=== PATIENT | female | born 1955 | race Caucasian/White ===

== ENCOUNTER 2024-09-09 23:48 | Inpatient (IN) | payer MEDICARE, SELFPAY ==
[2024-09-09] VITALS (7 sets, daily range): BP systolic 87–121; BP diastolic 62–106
--- NOTE | 2024-09-09 22:13 | ED.GENMED ---
History of Present Illness
General
Chief Complaint: Change in Mental Status
Source: ambulance crew (Nursing staff)
Exam Limitations: dementia
Time Seen by Provider: 09/09/24 22:02
History of Present Illness
History of Present Illness:
This is a 69 year old female that is non verbal from [facility]. Told that the patient has decreased mentation and failure to thrive per staff. Told that she was hypotensive and Tachycardic. Patent has a fever of 103. Attempted to call [facility] and no one was available to speak and it went right to leaving a message.
Past History
Past History
ED Past Medical History: Psychiatric (Depression. Anxiety, Mood disorder) and Other (Dementia, Failure to thribe, DVT, Muscle weakness. dysphagia, Nonverbal adult. Legs contracted)
ED Past Surgical History: None
Social History
Living: [facility] ([facility])
Review of Systems
Review of Systems
Unable to obtain full review of systems at this time due to: dementia
Other source history: ambulance crew and other
Constitutional: Reports other (failure to thrive)
EENT: Reports no symptoms
Respiratory: Reports no symptoms
Cardiac: Reports other (Tachycardia)
Skin: Reports no symptoms
Neurological: Reports other
Psychiatric: Reports no symptoms (patient nonverbal with Confusion at baseline)
Phy Exam
General Physical Exam
General Presentation: no apparent distress
General age: appears stated age
General Skin: warm and dry
General Habitus: debilitated and failure to thrive
General Mental: usual mental status (Nonverbal at base line, Makes eye contact, Not following commands)
General Hydration: dry mucous membranes
ENT Exam
ENT Exam: TM's normal and neck supple
Eye Exam
Eye Exam: EOMI
Cardiovascular Exam
Cardiovascular Exam: no edema, normal peripheral pulses and tachycardia
Pulmonary Exam
Pulmonary Exam: lungs clear, no respiratory distress, no rales, chest non tender, no crackles, no rhonchi, no wheezing and no cough
Gastrointestinal Exam
Gastrointestinal Exam: non tender (No facial Grimacing), soft, no organomegaly, no pulsatile mass, non distended and other (Hypoactive bowel sounds)
Musculoskeletal Exam
Musculoskeletal Exam: no edema and other (Legs contacted)
Skin Exam
Skin Exam: normal color, warm/dry, no rash and no petechia
Psychiatric Exam
Psychiatric Exam: other (Told patient at base line nonverbal with confusion)
Sepsis
Sepsis Screening
Sepsis Assessment: Sepsis
Sepsis Screen
Sepsis Screen: Sepsis
Date: 09/09/24
Time: 23:35
Course
Orders/Labs/Results
Orders:
Orders
09/09/24 21:59
Complete Blood Count/With Diff Urgent
Lactic Acid Urgent
Urinalysis Reflex To Culture Urgent
Date Specimen was Collected: 09/09/24
Time Specimen was Collected: 21:59
Urine Microscopic Reflex Cult Urgent
Urine Culture Urgent
GEORGE Source: U
Specimen Description:
Date Specimen was Collected: 09/09/24
Time Specimen was Collected: 21:59
09/09/24 22:07
0.9% Sodium Chloride 1000 ml [Nss] 1,000 ml IV BOLUS
Acetaminophen 1000MG/100Ml [Ofirmev] 1,000 mg in 100 ml IV ONCE
Acetaminophen IV Indication:: ED Narcotic Naive Pt-ONCE
CR Chest Portable - 1 View Urgent
Reason For Exam: FEVER
09/09/24 22:29
COVID-19 Antigen Urgent
Source: Nasal Swab
Comprehensive Metabolic Panel Urgent
Influenza A+B Rapid Molecular Urgent
GEORGE Source: Nasal Swab
Specimen Description:
09/09/24 23:12
CefTRIAXone [Rocephin] 1,000 mg IV NOW STA
NSS 250mL Bolus over 1 hr 0.9% Sodium Chloride 250 ml [Nss] 250 ml IV BOLUS
Abnormal Lab Results
09/09/24 09/09/24
21:59 22:29
WBC 14.8 H 10^3/uL
(4.8-10.8)
RBC 5.48 H 10^6/uL
(4.20-5.40)
Hct 48.3 H %
(37.0-47.0)
MCHC 31.9 L g/dL
(33.0-37.0)
Abs Immat Gran (auto) 0.1 H 10^3/uL
(0-0.05)
Absolute Neuts (auto) 12.7 H 10^3/uL
(1.4-6.5)
Absolute Lymphs (auto) 1.0 L 10^3/uL
(1.2-3.4)
Absolute Monos (auto) 1.0 H 10^3/uL
(0.1-0.6)
Immature Gran % 0.6 H %
(0-0.5)
Neutrophils % 85.6 H %
(42.2-75.2)
Lymphocytes % 7.0 L %
(20.5-51.1)
Sodium 154 H mmol/L
(135-145)
Chloride 126 H mmol/L
(98-107)
Carbon Dioxide 15 L mmol/L
(22-30)
BUN 49 H mg/dl
(7-17)
Glucose 129 H mg/dl
(70-99)
Lactic Acid 3.8 H mmol/L
(0.7-2.0)
Calcium 7.3 L mg/dl
(8.4-10.2)
AST 148 H U/L
(14-36)
ALT 63 H U/L
(0-35)
Total Protein 5.5 L g/dl
(6.3-8.2)
Albumin 2.6 L g/dl
(3.5-5.0)
Ur Occult Blood Reflex 4+ A
(Negative)
Urine Bilirubin 1+ A
(Negative)
Urine Urobilinogen 2+ A
(Neg - 1+)
Leukocyte Esterase Rfl 2+ A
(Negative)
Urine RBC >100 A /HPF
(0-2)
Urine WBC (Reflex) 80-90 A /HPF
(0-5)
Urine Bacteria (Reflex) Many A
(Negative)
Urine Albumin (Reflex) 2+ A
(Neg - Trace)
09/09/24 21:59
09/09/24 22:29
Leukocytosis, Hypernatremia, Hyperchloremia, Carbon dioxide low, Dehydration. Hyperglycemia. Hypocalcemia, AST/ALT elevation. Total protein low. Albumin low. Urine positive for infection. COVID and Influenza negative. Lactic acid 3.8
Vital Signs
Initial and Last Documented VS:
Initial Vital Signs
Temp Pulse Resp Pulse Ox
103 F H 118 14 94
09/09/24 21:50 09/09/24 21:50 09/09/24 21:50 09/09/24 21:50
Last Documented Vital Signs
Temp Pulse Resp BP Pulse Ox
103 F H 121 29 87/62 97
09/09/24 21:50 09/09/24 22:15 09/09/24 22:15 09/09/24 22:00 09/09/24 21:52
MDM/Problems Addressed
Differential Diagnosis Includes:
COVID, PNA, UTI
MDM/Problems Addressed:
This is a 69 year old female that is brought in by ambulance from [facility] with c/o failure to thrive. Told that the patient was Tachycardic and hypotensive.
Patient was found to have a fever of 103. Will get blood work, chest x-ray, urine, COVID and influenza. Give IV fluids and Medicate with Tylenol
Chronic conditions affecting care:
Dementia, Nonverbal
Acute Exacerbation and/or Progression of Chronic Illness:
Dementia, Nonverbal
*Radiology
Radiology exam reviewed: preliminary read by ED provider (Chest negative for active disease)
*Pulse Oximetry
Patient hypoxic: no
*EKG
Interpreted by ED Provider?: NA
Rate: EKG- N/A
*Asset Recovery Specialist Interpretation
Rate: tachycardiac
Heart Rate: 117
Rhythm: sinus tachycardia
*Critical Care Note
Total Time (30-74mins, 75-104mins- exclusive of procedures): Not Applicable
ED Attending Note
-
Portions of this chart may have been created with voice recognition software.� Occasional wrong word or��sound alike� substitutions may have occurred due to the inherent limitations of voice recognition software.
Discharge Plan
Departure
Patient Disposition: Admit
Date of Disposition: 09/09/24
Time of Disposition: 23:21
Admit to: IMU
Presentation/result/management discussed w/ accepting MD/DO: Hospitalist
Patient with high blood pressure during this ER visit?: No
Condition: Fair
Covid-19: Negative COVID-19
Discharge Problem:
Failure to thrive, Urinary tract infection, abnormal labs, Sepsis
Prescriptions:
No Action
ergocalciferol (vitamin D2) 1,250 mcg (50,000 unit) Capsule
50,000 unit PO TH 30 Days Qty: 4 0RF
acetaminophen 325 mg Tablet
650 mg PO Q4HPRN PRN (Reason: mild pain)
acetaminophen 325 mg Tablet
650 mg PO HS
acetaminophen 650 mg Suppository
[address] Q4HPRN PRN (Reason: mild pain)
acetaminophen 500 mg Tablet
1,000 mg PO Q6HPRN PRN (Reason: mild pain)
potassium chloride 20 mEq tablet,ER particles/crystals
20 meq PO DAILY
magnesium hydroxide [Milk of Magnesia] 400 mg/5 mL Suspension
30 ml PO HSPRN PRN (Reason: if no bm in 3 days)
bisacodyl [Dulcolax (bisacodyl)] 10 mg Suppository
[address] DAILYPRN PRN (Reason: if no results for MOM)
furosemide 20 mg tablet
20 mg PO DAILY
mirtazapine 15 mg tablet
15 mg PO HS
Eliquis 5 mg tablet
5 mg PO BID
Referrals:
UNKNOWN,NO INTERVIEW [Family Provider] -
Interventions
Interventions:
*Risk Screen - Suicide Last Done: 09/09/24 21:50
*General Assessment Last Done: 09/09/24 21:50
*Neglect/Abuse Screening Last Done: 09/09/24 21:50
ED- Neurological Assessment Last Done: 09/09/24 22:24
ED Swallowing Screen Last Done: 09/09/24 22:24
Discharge Date and Time
Print Language: KHMER
[2024-09-09 22:14] LABS: % Basophils 0.2 % (0-2); % Immature Granulocytes 0.6 % (0-0.5); % Monocytes 6.6 % (1.7-9.3); % Neutrophils 85.6 % (42.2-75.2); Absolute Immature Granulocytes 0.1 10^3/uL (0-0.05); Absolute Neutrophils 12.7 10^3/uL (1.4-6.5); Hematocrit 48.3 % (37.0-47.0); Hemoglobin 15.4 g/dL (12.0-16.0); Mean Corp Hgb Conc. 31.9 g/dL (33.0-37.0); Mean Corpuscular Hgb 28.1 pg (27.0-31.0); Mean Corpuscular Volume 88.1 fL (81.0-99.0); Mean Platelet Volume 10.3 fL (7.4-10.4); Nucleated Red Blood Cells % 0 %; Platelet Count 323 10^3/uL (130-400); Red Blood Cell Count 5.48 10^6/uL (4.20-5.40); Red Cell Dist. Width 13.4 % (11.5-14.5); White Blood Cell Count 14.8 10^3/uL (4.8-10.8)
[2024-09-09 22:27] LABS: Lactic Acid 3.8 mmol/L (0.7-2.0)
[2024-09-09 22:32] LABS: Urine Albumin 2+ (Neg - Trace); Urine Bilirubin 1+ (Negative); Urine Character Very Cloudy (Clear); Urine Color Brown; Urine Glucose Negative (Negative); Urine Ketone Negative (Negative); Urine Leukocyte 2+ (Negative); Urine Nitrite Negative (Negative); Urine Occult Blood 4+ (Negative); Urine Urobilinogen 2+ (Neg - 1+)
[2024-09-09] MEDS: OFIRMEV 100 IV (22:34)
[2024-09-09] MEDS: NSS 1000 IV (22:34)
[2024-09-09 22:59] LABS: ALT (SGPT) 63 U/L (0-35); AST (SGOT) 148 U/L (14-36); Albumin 2.6 g/dl (3.5-5.0); Alkaline Phosphatase 58 U/L (38-126); Blood Urea Nitrogen 49 mg/dl (7-17); Calcium 7.3 mg/dl (8.4-10.2); Carbon Dioxide 15 mmol/L (22-30); Chloride 126 mmol/L (98-107); Glucose 129 mg/dl (70-99); Potassium 3.7 mmol/L (3.5-5.1); Sodium 154 mmol/L (135-145); Total Bilirubin 0.4 mg/dl (0.2-1.3); Total Protein 5.5 g/dl (6.3-8.2); eGFR > 60.00
[2024-09-09 22:59] LABS: Urine Bacteria Many (Negative)
[2024-09-09 23:00] LABS: Urine Red Blood Cell >100 /HPF (0-2); Urine White Cell 80-90 /HPF (0-5)
[2024-09-09 23:03] LABS: COVID-19 Antigen Negative (Negative)
[2024-09-09] MEDS: NSS 250 IV (23:32)
--- NOTE | 2024-09-09 23:44 | HPS.HSE ---
Addendum entered and electronically signed by Chad Anguiano DO 09/10/24 05:52:
Spoke with [id number] Meri Harris this AM and updated on patient presentation and progress thus far.
[id number] indicates that resuscitation efforts would not be desired in the event of cardiopulmonary arrest.
Code status changed to DNR.
Original Note:
Family Physician
-
Family Physician: NO INTERVIEW UNKNOWN
Chief Complaint
-
Failure to Thrive
History of Present Illness
Patient is a 69y F with PMH significant for chronic mood disorder / psychosis, bilateral LE contractures, non-verbal at baseline and failure to thrive who presents [facility] ED from local [facility] for further evaluation. Extremely limited history /
information as patient is completely unable to contribute and AL staff could not be contacted despite multiple attempts. Patient reportedly sent to the ED for evaluation of 'failure to thrive'. In the ED, patient is noted to be contracted and
cachectic 69y F. She is febrile to 103 and on initial exam was hypotensive and tachycardic.
Patient was treated with IVF boluses and at the time of my examination she was awake and interactive - if confused. She makes eye contact. She is somewhat restless and pulling at monitors / lines at times.
Spoke with sister via phone who confirms baseline non-verbal and non-ambulatory status.
Sister states that patient has progressively declined since her admission to [facility] including progressive weight loss, etc.
Medical History
Past Medical History
Past Medical History: Reports Other
Additional Past Medical History:
Mood Disorder / Psychosis / Dementia
Chronic LE Contractures / Ambulatory Dysfunction
Chronically Non-Verbal
Dysphagia
Protein Calorie Malnutrition
DVT RLE (04/2023)
Past Surgical History: Reports Other
Additional Past Surgical History:
Unknown
Social History
Unable to obtain full social history at this time due to: Patient Non-verbal
Family History
Family History: Unable to Obtain
Allergies / Home Medications
Allergies reflects when Allergies were last updated in [employer].
Home Medications with original date entered in [employer]
Allergy/Medication List:
Allergies
Allergy/AdvReac Type Severity Reaction Status Date / Time
No Known Allergies Allergy Verified 09/09/24 21:50
Home Medications
ergocalciferol (vitamin D2) 1,250 mcg (50,000 unit) capsule 50,000 unit PO TH 30 days #4 caps 05/20/23
acetaminophen 325 mg tablet 650 mg PO HS 09/09/24
acetaminophen 325 mg tablet 650 mg PO Q4HPRN PRN mild pain 09/09/24
acetaminophen 500 mg tablet 1,000 mg PO Q6HPRN PRN mild pain 09/09/24
acetaminophen 650 mg rectal suppository 650 mg AK Q4HPRN PRN mild pain 09/09/24
apixaban 5 mg tablet (Eliquis) 5 mg PO BID 09/09/24
bisacodyl 10 mg rectal suppository (Dulcolax (bisacodyl)) 10 mg AK DAILYPRN PRN if no results for MOM 09/09/24
furosemide 20 mg tablet 20 mg PO DAILY 09/09/24
magnesium hydroxide 400 mg/5 mL oral suspension (Milk of Magnesia) 30 ml PO HSPRN PRN if no bm in 3 days 09/09/24
mirtazapine 15 mg tablet 15 mg PO HS 09/09/24
potassium chloride 20 mEq tablet,extended release(part/cryst) 20 meq PO DAILY 09/09/24
Review of Systems
-
Unable to obtain full review of systems at this time due to: Patient Non-verbal
Physical Exam
Vital Signs
Vital Signs
Temp Pulse Resp BP Pulse Ox
103 F H 121 29 87/62 97
09/09/24 21:50 09/09/24 22:15 09/09/24 22:15 09/09/24 22:00 09/09/24 23:29
Physical Exam
General: Other (Chronically ill-appearing, frail and cachectic 69y F - currently awake, appears alert and moving about in bed.)
HEENT: Other (Dry MM. Neck supple.)
Respiratory: Other (Decreased BS bilaterally. No W/R/R.)
Cardiac: S1/S2 and Regular Rhythm; No Murmur
GI: Soft, Non Tender, Non Distended and Normal Bowel Sounds
Musculoskeletal: Other (Bilateral LE contractures. Healing scratches on lower legs.)
Neuro: Awake, Alert and Other (Non-verbal.); No Oriented
Psych: Confused
Laboratory Results
-
09/09/24 21:59
09/09/24 22:29
Laboratory Results
Lactic Acid 3.8 mmol/L (0.7-2.0) H 09/09/24 21:59
Total Bilirubin 0.4 mg/dl (0.2-1.3) 09/09/24 22:29
AST 148 U/L (14-36) H 09/09/24 22:29
ALT 63 U/L (0-35) H 09/09/24 22:29
Alkaline Phosphatase 58 U/L (38-126) 09/09/24 22:29
Impression/Plan
-
A/P: Patient is a 69y F with PMH significant for mood disorder, chronic contractures / bed-bound status and 'failure to thrive' who was sent to ED from local [facility] for further evaluation.
Septic Shock
Lactic Acidosis
UTI
- Admit for further evaluation and treatment.
- Patient presents with fever, leukocytosis, tachycardia and hypotension.
- Elevated lactic acid of 3.8.
- Source of infection unclear - possible / probable urine. COVID negative.
- Check blood cultures x 2 sets.
- Empiric abx with Zosyn for now.
- Follow up culture data and adjust treatment as indicated.
- Aggressive IVF replacement +/- pressor support if needed to maintain perfusion.
- Follow for continued clinical improvement (positive response already to IVFs administered in the ED).
- Consider further evaluation / imaging of abdomen pelvis if no improvement / no source identified.
Non-Gapped Metabolic Acidosis
Dehydration
Azotemia
- Likely pre-renal on the basis of poor oral intake, acute illness, etc.
- Not clear / known if there has been recent volume losses.
- Aggressive IVF replacement as noted above.
- Once hemodynamically stable - transition to hypotonic solution to correct free water deficit.
- Follow serial labs / lytes and adjust IVFs as needed.
Severe Protein Calorie Malnutrition
Chronic LE Contractures
Chronically Bed-Bound
Chronically Non-Verbal
- Supportive care including frequent repositioning, etc.
- Dietary / nutrition evaluation.
- Speech eval to assess swallow capabilities.
- Need to discuss with family re: goals of care in this frail and chronically ill individual.
- Spoke with sister via phone in the ED. Apparently [id number] (Meri Harris) is medical decision-maker.
- Message left for POA - await return call.
Mood Disorder / Psychosis
- Previously on Zyprexa. Only current mood medication is mirtazapine.
- Holding all PO meds for now.
- Monitor for acute delirium / agitation / etc during hospital stay and adjust regimen as needed.
History of DVT
DVT Prophylaxis
- Hold PO Eliquis for now.
- Prophylactic Subcut Heparin
Code Status: Full code per NH record. See above re: discussion with POA / medical decision-maker.
[2024-09-10] VITALS (17 sets, daily range): BP systolic 101–164; BP diastolic 65–117; BMI 14.5
[2024-09-10] MEDS: ROCEPHIN 1000 MG IV (00:01)
[2024-09-10 03:27] LABS: Lactic Acid 3.2 mmol/L (0.7-2.0)
[2024-09-10 03:51] LABS: Blood Urea Nitrogen 63 mg/dl (7-17); Calcium 9.4 mg/dl (8.4-10.2); Carbon Dioxide 26 mmol/L (22-30); Chloride 121 mmol/L (98-107); Estimated Creatinine Clearance 26 ml/min; Glucose 148 mg/dl (70-99); Potassium 4.8 mmol/L (3.5-5.1); Sodium 159 mmol/L (135-145); eGFR 44.24
[2024-09-10] MEDS: ZOSYN 50 IV ×4 (04:00→19:52)
[2024-09-10 04:16] LABS: TSH Reflex To Free T4 0.28 uIU/ml (0.47-4.68)
[2024-09-10 04:46] LABS: Free T4 1.27 ng/dl (0.78-2.19)
[2024-09-10] MEDS: LR 1000 IV (04:52)
--- NOTE | 2024-09-10 05:50 | PTCARENOTE ---
Pt received from ED RN. Pt nonverbal, awake, smiles and nods head at times. However cannot follow commands. Responds 'ouch' to pain. NSR on monitor. BC sent. Sam placed per order. Pt with multiple present on admission pressure inquiries and
wounds. Wounds documented and care preformed, Woc consult placed. due to pt being nonverbal admission was done to the the best of the RNs ability. DNR bracelet applied per order anad change of code status. Assessment as documented. Safe environment
maintained.
--- NOTE | 2024-09-10 06:14 | W.PN.UPDATE ---
Update Note
Progress Note Update
lab results noted, will order D5w @ 125cc/hr, BMP at 10 AM.
patient pulling out tubes, will place Mitts restraints on.
--- NOTE | 2024-09-10 06:15 | PTCARENOTE ---
Pt pulling at garcia and Pt pulled out IV. IV team called. [employer] contacted. order received for B/L mitts.
[2024-09-10 06:25] LABS: Hematocrit 43.4 % (37.0-47.0); Hemoglobin 13.3 g/dL (12.0-16.0); Mean Corp Hgb Conc. 30.6 g/dL (33.0-37.0); Mean Corpuscular Hgb 28.4 pg (27.0-31.0); Mean Corpuscular Volume 92.5 fL (81.0-99.0); Mean Platelet Volume 10.8 fL (7.4-10.4); Platelet Count 267 10^3/uL (130-400); Red Blood Cell Count 4.69 10^6/uL (4.20-5.40); Red Cell Dist. Width 13.5 % (11.5-14.5); White Blood Cell Count 13.8 10^3/uL (4.8-10.8)
[2024-09-10] MEDS: D5W 1000 IV ×3 (06:41→23:05)
[2024-09-10 06:44] LABS: Magnesium 2.6 mg/dl (1.6-2.3); Phosphorus 3.4 mg/dl (2.5-4.5)
[2024-09-10 06:54] LABS: Glucose - Point of Care 139 mg/dl (70-99)
--- NOTE | 2024-09-10 08:00 | PTCARENOTE ---
O joanna vee pt is asleep . contracted, shanita mitts in place as she pulls out iv. Iv fluids running as ordered. NPO until seen by speech .awaiting wound care
--- NOTE | 2024-09-10 08:02 | W.PN.HOSP.TC ---
Addendum entered and electronically signed by Katie Hobbs MD 09/10/24 19:33:
I saw and evaluated the patient independently. I reviewed the resident�s note and agree with findings and plan as documented by Dr. Little.
GENERAL: chronically ill appearing, frail, cachectic female in NAD--nonverbal at baseline
HEENT: NC/AT--sunken features, bitemporal wasting--dry mucus membranes
HEART: regular rate and rhythm, +S1, +S2
LUNGS : clear to auscultation bilaterally
ABDOM: soft, nontender, nondistended, + bowel sounds
EXT: no cyanosis, clubbing, or edema
NEUROLOGIC: nonverbal--contacted
SKIN: multiple pressure injuries on multiple areas
Sepsis (met criteria, POA) with lactic acidosis--UTI, infected wounds, osteomyelitis all possibilities--cont IVF and trend lactic--follow cultures, cont zosyn for now
Hypernatremia secondary to dehydration--Sodium 158 today, continue to monitor--Continue hypotonic fluid resuscitation--follow sodium
WILLIAMS--Creatinine elevated from 1 to 1.3, now downtrending to 1.1--Likely secondary to muscle wasting, dehydration, infection--follow
severe protein calorie malnutrition--Chronic lower extremity contractures, bedbound, nonverbal--apprec speech--IDD4 diet
Mood disorder/psychosis--Continue mirtazapine crushed in pur�e--Monitor for acute delirium or agitation during hospital stay--Continue soft mitts as restraints to prevent any further pulling of lines
History of DVT--Continue prophylactic subcutaneous heparin--Continue to hold p.o. Eliquis
multiple PI's on legs/feet/R hip and R Ischium-- Has DTI on medial feet, bunions with dark maroon base, shallow pus filled blister on top. Blanchable redness R lateral foot, dorsal foot with DTI. L lower medial leg dark maroon DTI, L lower medial
leg with eschar, DTI. R hip DTI dark maroon patch. R Ischium with suspected stage 4 PI, dark esquivel foul smelling slough at base, can palpate bone but not visible--all POA--apprec wound care
code status -- DNR
Spoke with Sister Radha and [id number] Meri (by phone) explained failure to thrive, severe dehydration, possible infection--answered all questions--would give patient 24 to 48 hours to correct metabolic abnormalities. If patient does not
improve, would be candidate for comfort measures/hospice
Original Note:
Today's Communication/Plan
-
.
Assessment / Plan
Assessment / Plan
69-year-old female with past medical history of chronic mood disorder, psychosis, bilateral lower extremity, nonverbal at baseline and failure to thrive presenting to [facility] for progressive failure to thrive.
# Sepsis of unknown origin versus UTI
Patient meets SIRS criteria at time of admission with fever, leukocytosis, tachycardia and hypotension
Lactic acid at time of admission 3.8 now downtrending to 1.8, continue to monitor
UTI positive, culture pending
Continue empiric antibiotic coverage with Zosyn
Culture pending for urine and blood
Continue aggressive IV fluid replacement (D5)-hypotonic solution
#Hypernatremia secondary to dehydration
Sodium 158 today, continue to monitor
Continue hypotonic fluid resuscitation
# WILLIAMS
Creatinine elevated from 1 to 1.3, now downtrending to 1.1
Likely secondary to muscle wasting, dehydration
Continue fluid resuscitation and creatinine trend
#severe protein calorie malnutrition
Chronic lower extremity contractures, bedbound, nonverbal
Speech recommend L4 pur�e, L0 thin liquids. Full feed, alternating sips/bites, check for pocketing, oral care post meals and meds crushed in pur�e
Discussion with family today regarding goals of care done. Patient's sister and [id number] will further communicate over the next 2 days and decide what the next steps will be
#Mood disorder/psychosis
Continue mirtazapine crushed in pur�e
Monitor for acute delirium or agitation during hospital stay
Continue soft mitts as restraints to prevent any further pulling of lines
#History of DVT
Continue prophylactic subcutaneous heparin
Continue to hold p.o. Eliquis
CODE STATUS DNR
Anticipated Discharge: > 48 hours
Subjective/Interval History
-
Date of Service: September 10, 2024
69-year-old female with past medical history of chronic mood disorder, psychosis, bilateral lower extremity, nonverbal at baseline and failure to thrive presenting to [facility] from local detention for further evaluation. In the ED she
was febrile to 103 and hypotensive/tachycardic. Patient was treated with IVF boluses and blood pressure responded. Power of commercial litigation attorney [id number] who confirmed to admitting doctor that patient is nonverbal and nonambulatory at baseline. She also
stated that patient has progressively declined since admission to detention. Overnight patient CODE STATUS was changed from full code to DO NOT RESUSCITATE by POA. Today during evaluation, patient was nonresponsive to verbal stimuli and curled
to her left side. Conversation today with sister, Radha, at bedside regarding goals of care. Discussed that over the next 24 to 48 hours the medicine team will try to correct electrolyte abnormalities and continue fluid resuscitation/antibiotic
support and efforts to improve status. Radha stated multiple times that she thinks this is not what her sister would have wanted and stated she will talk with her [id number] as well regarding whether hospice/comfort care would be best for the
patient.
Objective Data
-
Labs:
Laboratory Results
09/09/24 09/09/24 09/10/24
21:59 22:29 03:07
WBC 14.8 H
Hgb 15.4
Hct 48.3 H
Plt Count 323
Sodium Cancelled 154 H 159 H
Potassium Cancelled 3.7 4.8 D
Chloride Cancelled 126 H 121 H
Carbon Dioxide Cancelled 15 L 26
BUN Cancelled 49 H 63 H
Creatinine Cancelled 1.0 1.3 H
Glucose Cancelled 129 H 148 H
Calcium Cancelled 7.3 L 9.4 D
Total Bilirubin Cancelled 0.4
AST Cancelled 148 H
ALT Cancelled 63 H
Alkaline Phosphatase Cancelled 58
09/10/24 09/10/24 09/10/24
05:56 06:00 10:00
WBC 13.8 H
Hgb 13.3
Hct 43.4
Plt Count 267
Sodium Cancelled Pending
Potassium Cancelled Pending
Chloride Cancelled Pending
Carbon Dioxide Cancelled Pending
BUN Cancelled Pending
Creatinine Cancelled Pending
Glucose Cancelled Pending
Calcium Cancelled Pending
Total Bilirubin
AST
ALT
Alkaline Phosphatase
Vital Signs:
Vital Signs
Temp Pulse Resp BP Pulse Ox
97.3 F 102 20 109/77 97
09/10/24 07:00 09/10/24 07:30 09/10/24 07:30 09/10/24 06:02 09/10/24 05:15
Review of Systems
-
Unable to obtain full review of systems at this time due to: Patient Non-verbal
Physical Exam
-
General: Appears Chronically Ill and Cachectic
Respiratory: Clear to Auscultation and Decreased Breath Sounds
Cardiac: Regular Rhythm and S1/S2
GI: Soft, Nontender and Nondistended
Skin: Warm, Dry and Other (Numerous wounds)
Neuro: Other (Not awake, alert or oriented during exam)
Psych: Other (Nonverbal)
Data Reviewed
-
Diagnostic Radiology: Report Reviewed by me and Discussed with Physician
Labs: Labs Reviewed by me and Discussed with Physician
Old Records: Reviewed
[2024-09-10 08:13] LABS: Lactic Acid 1.8 mmol/L (0.7-2.0)
[2024-09-10] MEDS: HEPARIN 5000 UNITS SC ×2 (08:26→19:52)
--- NOTE | 2024-09-10 09:48 | PTOTSP ---
Dysphagia Evaluation
Patient presents with signs concerning for moderate oral dysphagia and unspecified pharyngeal dysphagia without overt signs/symptoms concerning for aspiration. CXR without PNA. Patient with acute on chronic risk factors for dysphagia (i.e., sepsis
with UTI, dementia). Recommend temporary diet modification below during acute illness. Registered dietitian consult warranted to ensure adequate nutrition/hydration on modified diet. Will advance diet if/when appropriate to reduce potential for
loss of muscle function and impact on nutrition.
Recommend:
1. L4 Puree, L0 Thin Liquids
2. Medications - crushed in puree
3. Strategies: FULL supervision and assistance, single sips/bites, alternate sips/bites, check for oral residue, suction/oral care after meals
4. Dysphagia tx at the acute care level
--- NOTE | 2024-09-10 10:11 | PTCARENOTE ---
Pt seen by speech recommendations made seen by wound care . Pt is non verbal
--- NOTE | 2024-09-10 10:19 | WOUNDNOTE ---
LEFT LATERAL FOOT, LEFT MEDIAL FOOT(BUNION)
--- NOTE | 2024-09-10 10:21 | WOUNDNOTE ---
LEFT LATERAL LOWER LEG
--- NOTE | 2024-09-10 10:22 | WOUNDNOTE ---
LEFT MEDIAL LOWER LEG
--- NOTE | 2024-09-10 10:26 | WOUNDNOTE ---
RIGHT MEDIAL FOOT(BUNION), RIGHT LATERAL FOOT
--- NOTE | 2024-09-10 10:29 | WOUNDNOTE ---
LEFT MEDIAL FOOT
--- NOTE | 2024-09-10 10:31 | WOUNDNOTE ---
RIGHT LATERAL ANKLE
--- NOTE | 2024-09-10 10:33 | WOUNDNOTE ---
RIGHT LATERAL FOOT
[2024-09-10 10:34] LABS: Blood Urea Nitrogen 61 mg/dl (7-17); Calcium 9.4 mg/dl (8.4-10.2); Carbon Dioxide 28 mmol/L (22-30); Chloride 118 mmol/L (98-107); Estimated Creatinine Clearance 31 ml/min; Glucose 171 mg/dl (70-99); Potassium 4.1 mmol/L (3.5-5.1); Sodium 158 mmol/L (135-145); eGFR 54.06
--- NOTE | 2024-09-10 10:39 | WOUNDNOTE ---
RIGHT LOWER LEG
--- NOTE | 2024-09-10 10:40 | WOUNDNOTE ---
[facility] RN note: Patient admitted with sepsis, UTI.
See H&P for complete history. From [facility].
PMH: Psychiatric (Depression. Anxiety, Mood disorder) and Other (Dementia, Failure to thrive, DVT, Muscle weakness. dysphagia, Nonverbal adult. Legs contracted)
Wound Location and type/assessment: Patient admitted with: multiple PI's on legs/feet/R hip and R Ischium. Patient severely retracted and complains of pain when attempted to move legs. Has DTI on medial feet, bunions with dark maroon base, shallow
pus filled blister on top. Blanchable redness R lateral foot, dorsal foot with DTI. L lower medial leg dark maroon DTI, L lower medial leg with eschar, DTI. R hip DTI dark maroon patch. 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
slough at base, can palpate bone but not visible. Undermines 12-4 O' clock approximately 2.5cm. Notified Dr. Hobbs and residents while on rounds of the above.
Appetite: Pureed foot, encourage protein in diet.
Pressure redistribution devices in place: On Air mattress, pillows btw knees and under heels.
Plan: Keep on air mattress if transferred to floor. Will order [employer] wtd for R ischium. Bunions on feet adaptic and silicone foams. All remaining wounds silicone foams. Dr Hobbs approved of wound care and recommended surgical consult if not
made comfort. Updated nurse Luis Enrique. Updated care plan and will follow as needed.
Note to case management of equipment requested for discharge: Air mattress
[2024-09-10 14:58] LABS: Glucose - Point of Care 162 mg/dl (70-99)
--- NOTE | 2024-09-10 17:40 | CM ---
Patient and sister seen at bedside. Sister in law participated via phone. Patient is LTC at [facility]. Patient sister states that patient normally is not verbal and has been losing weight. Patient sister states that they do not have a POA
document but make decisions with sister and sister in law in cooperation. CM will continue to follow for discharge planning needs.
Plan; return to SNF; pending medical treatment plan
[2024-09-10 18:00] LABS: Glucose - Point of Care 177 mg/dl (70-99)
[2024-09-10] MEDS: D5W IV (22:02)
[2024-09-11] VITALS (9 sets, daily range): BP systolic 98–129; BP diastolic 64–77; BMI 15.0
[2024-09-11 00:19] LABS: Glucose - Point of Care 159 mg/dl (70-99)
[2024-09-11] MEDS: ZOSYN 50 IV ×4 (02:30→17:08)
--- NOTE | 2024-09-11 05:12 | PTCARENOTE ---
Pt's garcia draining wallace urine. Garcia noted to have leaked on pad but is draining through tube without a problem. Will continue to monitor.
[2024-09-11] MEDS: D5W 1000 IV (07:16)
[2024-09-11] MEDS: HEPARIN 5000 UNITS SC ×2 (07:51→20:40)
[2024-09-11] MEDS: DAKIN'S SOLUTION 0.125% 1/4 STRENGTH 473 ML TOPICAL (07:51)
[2024-09-11 09:24] LABS: Blood Urea Nitrogen 29 mg/dl (7-17); Calcium 8.7 mg/dl (8.4-10.2); Carbon Dioxide 27 mmol/L (22-30); Chloride 99 mmol/L (98-107); Estimated Creatinine Clearance 58 ml/min; Glucose 333 mg/dl (70-99); Sodium 135 mmol/L (135-145); eGFR > 60.00
[2024-09-11 09:26] LABS: Hematocrit 38.8 % (37.0-47.0); Hemoglobin 11.9 g/dL (12.0-16.0); Mean Corp Hgb Conc. 30.7 g/dL (33.0-37.0); Mean Corpuscular Hgb 28.3 pg (27.0-31.0); Mean Corpuscular Volume 92.2 fL (81.0-99.0); Mean Platelet Volume 10.7 fL (7.4-10.4); Platelet Count 205 10^3/uL (130-400); Red Blood Cell Count 4.21 10^6/uL (4.20-5.40); Red Cell Dist. Width 13.2 % (11.5-14.5); White Blood Cell Count 9.7 10^3/uL (4.8-10.8)
--- NOTE | 2024-09-11 09:56 | PN.CDI ---
CDI
- -
CDI:
Physician Documentation Request
Admit Date: 09/09/24 23:48
Dear Doctor Sidney,
Patient admitted for sepsis.
09/10 Wound Care Note: 'R Ischium with suspected stage 4 PI, dark esquivel foul smelling slough at base, can palpate bone but not visible. Undermines 12-4 O' clock approximately 2.5cm.'
Physician documentation of the type and location of wounds is required for compliant documentation. Based on the above clinical findings and your assessment, please provide the following in your progress note:
1. Location of the ulcer/wound, including laterality.
2. Type (etiology) of ulcer/wound:
- Diabetic ulcer
- Arterial (ischemic) ulcer
- Traumatic wound
- Venous stasis ulcer
- Pressure (decubitus) ulcer
- Non-healing surgical wound
- Other
- Unable to determine
3. For a non-pressure ulcer, please indicate the depth/severity:
- Limited to the breakdown of skin
- With fat layer exposed
- With necrosis of muscle
- With necrosis of bone
- Other
- Unable to determine
4. If a pressure ulcer, please also include the stage* of the ulcer:
- Stage 1 - Skin intact, non-blanchable redness
- Stage 2 - Partial thickness loss of dermis, includes intact or open blister
- Stage 3 - Full thickness tissue not including bone, tendon or muscle
- Stage 4 - Full thickness tissue loss, including exposed bone, tendon or muscle
- Unstageable - Full thickness loss in which the base of the ulcer is covered by slough (yellow, holguin, freed, green or brown) and/or eschar (holguin, brown or black) in the wound bed.
- Unable to determine
Use of terms such as suspected, likely, concern for, or probable (associated with a specific diagnosis that is being evaluated, monitored, or treated as if it exists) are acceptable and can be coded in the inpatient setting, when documented at the
time of discharge.
Thank you,
Tatum Banerjee RN, BSN
CDI Specialist
Available via [place] text
Please use your independent medical judgment in providing your response.
*Source: National Pressure Ulcer Advisory Panel (NPUAP)
--- NOTE | 2024-09-11 10:32 | W.PN.HOSP.TC ---
Addendum entered and electronically signed by Katie Hobbs MD 09/11/24 13:14:
I saw and evaluated the patient independently. I reviewed the resident�s note and agree with findings and plan as documented by Dr. Little.
GENERAL: chronically ill appearing, frail, cachectic female in NAD--nonverbal at baseline
HEENT: NC/AT--sunken features, bitemporal wasting--dry mucus membranes
HEART: regular rate and rhythm, +S1, +S2
LUNGS : clear to auscultation bilaterally
ABDOM: soft, nontender, nondistended, + bowel sounds
EXT: no cyanosis, clubbing, or edema
NEUROLOGIC: nonverbal--contacted
SKIN: multiple pressure injuries on multiple areas
Sepsis (met criteria, POA) with lactic acidosis--UTI (urine culture with gm neg bacilli)--stop IVF as lactate now normal-- cont zosyn
Hypernatremia secondary to dehydration--Sodium down to 135 today, continue to monitor--stop IVF
WILLIAMS--Creatinine elevated from 1 to 1.3, now back to baseline at 0.6--Likely secondary to muscle wasting, dehydration, infection--follow
severe protein calorie malnutrition--Chronic lower extremity contractures, bedbound, nonverbal--apprec speech--IDD4 diet
Mood disorder/psychosis--Continue mirtazapine crushed in pur�e--Monitor for acute delirium or agitation during hospital stay--Continue soft mitts as restraints to prevent any further pulling of lines
History of DVT--Continue prophylactic subcutaneous heparin--Continue to hold p.o. Eliquis
multiple pressure injuries on legs/feet/R hip and R Ischium-- Has DTI on medial feet, bunions with dark maroon base, shallow pus filled blister on top. Blanchable redness R lateral foot, dorsal foot with DTI. L lower medial leg dark maroon DTI, L
lower medial leg with eschar, DTI. R hip DTI dark maroon patch. R Ischium with suspected stage 4 PI, dark esquivel foul smelling slough at base, can palpate bone but not visible--all POA--apprec wound care
code status -- DNR
Spoke with Sister Radha and [id number] Meri (by phone) on 09/09/24 explained failure to thrive, severe dehydration, possible infection--answered all questions--would give patient 24 to 48 hours to correct metabolic abnormalities. If patient
does not improve, would be candidate for comfort measures/hospice
Original Note:
Today's Communication/Plan
-
.
Assessment / Plan
Assessment / Plan
69-year-old female with past medical history of chronic mood disorder, psychosis, bilateral lower extremity, nonverbal at baseline and failure to thrive presenting to [facility] for progressive failure to thrive.
# Sepsis of unknown origin versus UTI
Patient meets SIRS criteria at time of admission with fever, leukocytosis, tachycardia and hypotension
Lactic acid at time of admission 3.8 now downtrending to 1.8 then 1.1, continue to monitor
UTI positive, culture pending
Continue empiric antibiotic coverage with Zosyn
Culture pending for urine and blood
Stop IV fluids
#Hypernatremia secondary to dehydration
Sodium 158 yesterday, normal today at 135
Stop hypotonic fluid resuscitation
# Hypokalemia
Replete with Potassium Chloride
Recheck BMP in the morning, continue to monitor
# WILLIAMS
Creatinine elevated from 1 to 1.3, now downtrending to 1.1. Resolved.
Likely secondary to muscle wasting, dehydration
Stop fluid resuscitation
#severe protein calorie malnutrition
Chronic lower extremity contractures, bedbound, nonverbal
Speech recommend L4 pur�e, L0 thin liquids. Full feed, alternating sips/bites, check for pocketing, oral care post meals and meds crushed in pur�e
Discussion with family today regarding goals of care done. Patient's sister and [id number] will further communicate over the next 2 days and decide what the next steps will be
#Mood disorder/psychosis
Continue mirtazapine crushed in pur�e
Monitor for acute delirium or agitation during hospital stay
Continue soft mitts as restraints to prevent any further pulling of lines
#History of DVT
Continue prophylactic subcutaneous heparin
Continue to hold p.o. Eliquis
CODE STATUS DNR
Anticipated Discharge: > 48 hours
Subjective/Interval History
-
Date of Service: September 11, 2024
69-year-old female with past medical history of chronic mood disorder, psychosis, bilateral lower extremity, nonverbal at baseline and failure to thrive presenting to [facility] from local skilled nursing for further evaluation. In the ED she
was febrile to 103 and hypotensive/tachycardic. Patient was treated with IVF boluses and blood pressure responded. Power of district attorney [id number] who confirmed to admitting doctor that patient is nonverbal and nonambulatory at baseline. Today
she was awake and nodded to questions asked. Unclear if she understood the questions. Her eyes wide and when I mentioned her sister Radha would visit later. She continues to remain contracted in position.
Objective Data
-
Labs:
Laboratory Results
09/11/24
08:58
WBC 9.7
Hgb 11.9 L
Hct 38.8
Plt Count 205 D
Sodium 135 D
Potassium 3.0 L D
Chloride 99
Carbon Dioxide 27
BUN 29 H
Creatinine 0.6
Glucose 333 H
Calcium 8.7
Vital Signs:
Vital Signs
Temp Pulse Resp BP Pulse Ox
97.7 F 57 19 114/71 100
09/11/24 07:56 09/11/24 06:00 09/11/24 06:00 09/11/24 06:00 09/11/24 04:00
I&O
09/10/24 09/11/24 09/12/24
06:59 06:59 06:59
Intake Total 1700 / 1700
Output Total 625 / 625
Balance 1075 / 1075
Review of Systems
-
Unable to obtain full review of systems at this time due to: Patient Non-verbal
Physical Exam
-
General: Appears Chronically Ill and Cachectic
HEENT: Normocephalic, Atraumatic and Other (Dry mucous membrane)
GI: Soft, Nontender, Nondistended and Normal Bowel Sounds
Musculoskeletal: No Cyanosis, No Edema and Other (Chronic wounds, contracted extremities)
Skin: Warm, Dry and Decubitus Ulcers
Neuro: Awake
Psych: Other (Nonverbal)
[2024-09-11 12:20] LABS: Glucose - Point of Care 87 mg/dl (70-99)
[2024-09-11] MEDS: KCL 270 MEQ IV (12:47)
--- NOTE | 2024-09-11 13:02 | PTCARENOTE ---
Pt downgraded to telemetry. Report called to [facility] RN Will. Awaiting transport.
--- NOTE | 2024-09-11 14:35 | CM ---
Patient moved to [facility] today. CM met with patient sister Radha who is requesting to have educational assessment with communication skills instructor tomorrow at 1pm. Physicians aware and plan is for family to discuss with liaison to determine next steps. Patient
is LTC at SNF and plan is for patient to eventually return to facility when medically appropriate. CM will continue to follow for discharge planning needs.
Plan; return to SNF; watch for family choice re hospice options
[2024-09-11 22:52] LABS: Glucose - Point of Care 92 mg/dl (70-99)
[2024-09-12] MEDS: ZOSYN 50 IV ×3 (00:41→12:20)
[2024-09-12 03:00] VITALS: BP 111/70
[2024-09-12 06:00] VITALS: BMI 15.6
[2024-09-12 07:03] VITALS: BP 98/61
[2024-09-12 07:07] LABS: % Basophils 0.1 % (0-2); % Eosinophils 0.4 % (0-6); % Immature Granulocytes 1.6 % (0-0.5); % Lymphocytes 12.3 % (20.5-51.1); % Monocytes 6.7 % (1.7-9.3); % Neutrophils 78.9 % (42.2-75.2); Absolute Immature Granulocytes 0.1 10^3/uL (0-0.05); Absolute Lymphocytes 0.8 10^3/uL (1.2-3.4); Absolute Monocytes 0.5 10^3/uL (0.1-0.6); Absolute Neutrophils 5.3 10^3/uL (1.4-6.5); Hematocrit 36.1 % (37.0-47.0); Hemoglobin 11.3 g/dL (12.0-16.0); Mean Corp Hgb Conc. 31.3 g/dL (33.0-37.0); Mean Corpuscular Hgb 28.3 pg (27.0-31.0); Mean Corpuscular Volume 90.3 fL (81.0-99.0); Nucleated Red Blood Cells % 0 %; Platelet Count 219 10^3/uL (130-400); Red Cell Dist. Width 12.8 % (11.5-14.5); White Blood Cell Count 6.7 10^3/uL (4.8-10.8)
[2024-09-12 07:34] LABS: Blood Urea Nitrogen 18 mg/dl (7-17); Calcium 8.8 mg/dl (8.4-10.2); Carbon Dioxide 27 mmol/L (22-30); Chloride 107 mmol/L (98-107); Estimated Creatinine Clearance 60 ml/min; Glucose 99 mg/dl (70-99); Potassium 3.8 mmol/L (3.5-5.1); Sodium 144 mmol/L (135-145); eGFR > 60.00
--- NOTE | 2024-09-12 08:00 | W.PN.HOSP.TC ---
Addendum entered and electronically signed by Katie Hobbs MD 09/12/24 15:28:
I saw and evaluated the patient independently. I reviewed the resident�s note and agree with findings and plan as documented by Dr. Little.
GENERAL: chronically ill appearing, frail, cachectic female in NAD--nonverbal at baseline--appears a bit brighter
HEENT: NC/AT--sunken features, bitemporal wasting
HEART: regular rate and rhythm, +S1, +S2
LUNGS : clear to auscultation bilaterally
ABDOM: soft, nontender, nondistended, + bowel sounds
EXT: no cyanosis, clubbing, or edema
NEUROLOGIC: nonverbal--contacted
SKIN: multiple pressure injuries on multiple areas
Sepsis (met criteria, POA) with lactic acidosis--due to E. coli --change zosyn to oral cephalexin at d/c
Hypernatremia secondary to dehydration--resolved--stopped IVF
WILLIAMS--resolved--Creatinine elevated from 1 to 1.3, now back to baseline at 0.6--Likely secondary to muscle wasting, dehydration, infection
severe protein calorie malnutrition--Chronic lower extremity contractures, bedbound, nonverbal--apprec speech--IDD4 diet
Mood disorder/psychosis--Continue mirtazapine crushed in pur�e--Monitor for acute delirium or agitation during hospital stay--Continue soft mitts as restraints to prevent any further pulling of lines
History of DVT--Continue prophylactic subcutaneous heparin--Continue to hold p.o. Eliquis
multiple pressure injuries on legs/feet/R hip and R Ischium-- Has DTI on medial feet, bunions with dark maroon base, shallow pus filled blister on top. Blanchable redness R lateral foot, dorsal foot with DTI. L lower medial leg dark maroon DTI, L
lower medial leg with eschar, DTI. R hip DTI dark maroon patch. R Ischium with suspected stage 4 PI, dark esquivel foul smelling slough at base, can palpate bone but not visible--all POA--apprec wound care
code status -- DNR
family met with hospice--they are in agreement--hopeful d/c back to [facility] in AM
Original Note:
Today's Communication/Plan
-
.
Assessment / Plan
Assessment / Plan
69-year-old female with past medical history of chronic mood disorder, psychosis, bilateral lower extremity, nonverbal at baseline and failure to thrive presenting to [facility] for progressive failure to thrive.
# Sepsis of unknown origin versus UTI
Patient meets SIRS criteria at time of admission with fever, leukocytosis, tachycardia and hypotension
Lactic acid at time of admission 3.8 now downtrending to 1.8 then 1.1, continue to monitor
UTI positive, culture positive for E Coli
Transition IV Zosyn to PO Keflex
Stop IV fluids
#Hypernatremia secondary to dehydration
Sodium 158 09/10, remains normal at 144 on 09/12
stop hypotonic fluid resuscitation
# Hypokalemia
Replete with Potassium Chloride, potassium today at 3.8, now normal
Recheck BMP in the morning, continue to monitor
# WILLIAMS
Creatinine elevated from 1 to 1.3, now resolved.
Likely secondary to muscle wasting, dehydration
Stop fluid resuscitation
#severe protein calorie malnutrition
Chronic lower extremity contractures, bedbound, nonverbal
Speech recommend L4 pur�e, L0 thin liquids. Full feed, alternating sips/bites, check for pocketing, oral care post meals and meds crushed in pur�e
Addition of ensure made per speech recs
Discussion with family today regarding goals of care. Patient's sister and [id number] will have family meeting today at 1 PM
#Mood disorder/psychosis
start mirtazapine crushed in pur�e
Monitor for acute delirium or agitation during hospital stay
Continue soft mitts as restraints to prevent any further pulling of lines
#History of DVT
Continue prophylactic subcutaneous heparin
Continue p.o. Eliquis
CODE STATUS DNR
Anticipated Discharge: > 48 hours
Subjective/Interval History
-
Date of Service: September 12, 2024
69-year-old female with past medical history of chronic mood disorder, psychosis, bilateral lower extremity, nonverbal at baseline and failure to thrive presenting to [facility] for progressive failure to thrive. Today she is more alert
and was able to say a few words like food and yes and responded to questions with nodding her head (hunger, thirst). Plan to have family meeting at today with sister and [id number].
Objective Data
-
Labs:
Laboratory Results
09/12/24
06:24
WBC 6.7
Hgb 11.3 L
Hct 36.1 L
Plt Count 219
Sodium 144 D
Potassium 3.8 D
Chloride 107
Carbon Dioxide 27
BUN 18 H
Creatinine 0.6
Glucose 99
Calcium 8.8
Vital Signs:
Vital Signs
Temp Pulse Resp BP Pulse Ox
98.4 F 86 18 98/61 96
09/12/24 07:03 09/12/24 07:03 09/12/24 07:03 09/12/24 07:03 09/12/24 07:03
I&O
09/11/24 09/12/24 09/13/24
06:59 06:59 06:59
Intake Total 1700 / 1700 220 / 220
Output Total 625 / 625 1075 / 1075
Balance 1075 / 1075 -855 / -855
Review of Systems
-
Unable to obtain full review of systems at this time due to: Patient Non-verbal
History Source: Patient
Physical Exam
-
General: Cachectic
HEENT: Normocephalic and Atraumatic
Respiratory: Clear to Auscultation
Cardiac: Regular Rhythm and S1/S2
GI: Soft, Nontender and Nondistended
Musculoskeletal: No Clubbing, No Cyanosis and No Edema
Skin: Warm and Dry
Neuro: AO x 3
Psych: Calm
Data Reviewed
-
Labs: Labs Reviewed by me and Discussed with Physician
Old Records: Reviewed
[2024-09-12 08:53] LABS: Glucose - Point of Care 103 mg/dl (70-99)
[2024-09-12 11:00] VITALS: BP 111/69
[2024-09-12] MEDS: DAKIN'S SOLUTION 0.125% 1/4 STRENGTH 473 ML TOPICAL (11:39)
[2024-09-12] MEDS: HEPARIN 5000 UNITS SC (11:39)
--- NOTE | 2024-09-12 14:00 | HOSPNOTE ---
Met with family and discussed hospice and the philosophy. The plan is for patient to return to [place] with [facility] their preferred provider. CM aware of plan. Family in agreement with plan.
[2024-09-12 15:00] VITALS: BP 103/71; BP 121/43
--- NOTE | 2024-09-12 15:02 | CM ---
Addendum entered by Sonya Morel 09/12/24 16:07:
Per [facility], will meet w/ pt sister at LTC facility tomorrow. Agreeable to d/c pt tomorrow
Hospitalist updated and requested hospice eval and treat order.
[facility]

Original Note:
Chart reviewed. Pt is a LTC resident at [facility]
Family met w/ customer liaison today to determine plan of care at d/c
Per Dominique[facility]ospice, family would like to move forward w/ hospice at d/c. Family identified [facility] as preferred provider.
CM spoke w/ pt sister, Meri. Meri confirmed plan for hospice w/ [facility] at d/c. Pt will d/c back to LTC facility w/ hospice per Meri.
Hospice referral completed in [facility]. Spoke w/ Irma[facility] to inform of referral. Per Irma, she will review referral and reach out to the family
Hospitalist made aware and updated on family decision.
Will need ambulance transport at d/c
[facility]
Report: [phone]

Plan: Return to LTC facility w/ [facility]
[2024-09-12 16:50] LABS: Glucose - Point of Care 104 mg/dl (70-99)
[2024-09-12 19:05] VITALS: BP 119/76
[2024-09-12] MEDS: KEFLEX 500 MG PO (19:51)
[2024-09-12] MEDS: ELIQUIS 5 MG PO (19:51)
[2024-09-12 21:18] LABS: Glucose - Point of Care 109 mg/dl (70-99)
[2024-09-12] MEDS: REMERON 15 MG PO (22:19)
[2024-09-12 23:00] VITALS: BP 114/66
[2024-09-13 03:00] VITALS: BP 107/64
[2024-09-13] MEDS: TYLENOL 650 MG PO (05:29)
[2024-09-13 06:00] VITALS: BMI 16.0
[2024-09-13] MEDS: DAKIN'S SOLUTION 0.125% 1/4 STRENGTH TOPICAL (06:11)
[2024-09-13 06:14] LABS: % Eosinophils 0.3 % (0-6); % Immature Granulocytes 0.5 % (0-0.5); % Lymphocytes 10.7 % (20.5-51.1); % Monocytes 8.6 % (1.7-9.3); % Neutrophils 79.9 % (42.2-75.2); Absolute Lymphocytes 0.8 10^3/uL (1.2-3.4); Absolute Monocytes 0.6 10^3/uL (0.1-0.6); Hematocrit 36.7 % (37.0-47.0); Hemoglobin 11.6 g/dL (12.0-16.0); Mean Corp Hgb Conc. 31.6 g/dL (33.0-37.0); Mean Corpuscular Hgb 27.9 pg (27.0-31.0); Mean Corpuscular Volume 88.2 fL (81.0-99.0); Mean Platelet Volume 10.6 fL (7.4-10.4); Nucleated Red Blood Cells % 0 %; Platelet Count 238 10^3/uL (130-400); Red Blood Cell Count 4.16 10^6/uL (4.20-5.40); Red Cell Dist. Width 13.1 % (11.5-14.5); White Blood Cell Count 7.5 10^3/uL (4.8-10.8)
[2024-09-13 06:30] LABS: Blood Urea Nitrogen 10 mg/dl (7-17); Calcium 8.7 mg/dl (8.4-10.2); Carbon Dioxide 26 mmol/L (22-30); Chloride 109 mmol/L (98-107); Estimated Creatinine Clearance 62 ml/min; Glucose 101 mg/dl (70-99); Potassium 3.3 mmol/L (3.5-5.1); Sodium 142 mmol/L (135-145); eGFR > 60.00
[2024-09-13 07:00] VITALS: BP 107/59
--- NOTE | 2024-09-13 10:26 | CM ---
Addendum entered by Kaylee Sarabia 09/13/24 11:40:
Voicemail left for patients sister regarding transport time.
Addendum entered by Kaylee Sarabia 09/13/24 10:30:
Scheduled for 3:00 p.m. transport.
Original Note:
CM reviewed chart, reviewed with Hospitalist, patient LTC resident at [facility], plan return to LTC with [facility]. CM left voicemail for patients Meri finch, to discuss discharge planning and review IMM. Patient will require ambulance
transport. Update to [facility] and [facility] on discharge plan. CM will continue to follow for all discharge planning needs.
Plan; return to [facility] LT with [facility], ambulance transport.
[facility]
Report: [phone]

[facility]
[2024-09-13] MEDS: KEFLEX 500 MG PO (10:28)
[2024-09-13] MEDS: ELIQUIS 5 MG PO (10:28)
--- NOTE | 2024-09-13 10:28 | W.PN.HOSP.TC ---
Addendum entered and electronically signed by Katie Hobbs MD 09/13/24 10:38:
ERROR: hypokalemia NOT hyperkalemia--replete
Original Note:
Today's Communication/Plan
-
d/c to SNF on hospice
Assessment / Plan
Assessment / Plan
pt is a 69 year old female
Sepsis (met criteria, POA) with lactic acidosis--due to E. coli --change zosyn to oral cephalexin at d/c
Hypernatremia secondary to dehydration--resolved--stopped IVF
hyperkalemia--replete
WILILAMS--resolved--Creatinine elevated from 1 to 1.3, now back to baseline at 0.6--Likely secondary to muscle wasting, dehydration, infection
severe protein calorie malnutrition--Chronic lower extremity contractures, bedbound, nonverbal--apprec speech--IDD4 diet
Mood disorder/psychosis--Continue mirtazapine crushed in pur�e--Monitor for acute delirium or agitation during hospital stay--Continue soft mitts as restraints to prevent any further pulling of lines
History of DVT--Continue prophylactic subcutaneous heparin--Continue to hold p.o. Eliquis
multiple pressure injuries on legs/feet/R hip and R Ischium-- Has DTI on medial feet, bunions with dark maroon base, shallow pus filled blister on top. Blanchable redness R lateral foot, dorsal foot with DTI. L lower medial leg dark maroon DTI, L
lower medial leg with eschar, DTI. R hip DTI dark maroon patch. R Ischium with suspected stage 4 PI, dark esquivel foul smelling slough at base, can palpate bone but not visible--all POA--apprec wound care
code status -- DNR
family met with hospice--they are in agreement-- d/c back to [place] on [facility] today
Anticipated Discharge: Today
Subjective/Interval History
-
Date of Service: September 13, 2024
pt nonverbal
Objective Data
-
Labs:
Laboratory Results
09/13/24
05:58
WBC 7.5
Hgb 11.6 L
Hct 36.7 L
Plt Count 238
Sodium 142
Potassium 3.3 L
Chloride 109 H
Carbon Dioxide 26
BUN 10
Creatinine 0.4 L
Glucose 101 H
Calcium 8.7
Vital Signs:
max temp for 24 hours
09/12/24
23:00
Temp 99.4 F
Vital Signs
Temp Pulse Resp BP Pulse Ox
99.3 F 84 24 107/59 99
09/13/24 07:00 09/13/24 07:00 09/13/24 07:00 09/13/24 07:00 09/13/24 07:00
I&O
09/12/24 09/13/24 09/14/24
06:59 06:59 06:59
Intake Total 220 / 220 1678 / 1678
Output Total 1075 / 1075
Balance -855 / -855 1678 / 1678
Review of Systems
-
Unable to obtain full review of systems at this time due to: Patient Non-verbal
Physical Exam
-
General: Appears Chronically Ill and Cachectic
HEENT: Normocephalic and Atraumatic; Negative Oxygen
Respiratory: Clear to Auscultation; Negative Wheezes or Rhonchi
Cardiac: Regular Rhythm and S1/S2; Negative Murmur
GI: Soft, Nontender, Nondistended and Normal Bowel Sounds
Musculoskeletal: No Clubbing, No Cyanosis and No Edema
Neuro: Awake
[2024-09-13] MEDS: DAKIN'S SOLUTION 0.125% 1/4 STRENGTH 473 ML TOPICAL (10:29)
[2024-09-13 11:00] VITALS: BP 93/58
[2024-09-13] MEDS: KCL 40 MEQ PO (11:05)
[2024-09-13 11:40] VITALS: BP 93/58
[2024-09-13 11:58] LABS: Glucose - Point of Care 125 mg/dl (70-99)
--- NOTE | 2024-09-14 07:12 | W.DCSUMMARY ---
Discharge Summary
Discharge Data
Date of Admission: 09/09/24
Date of Discharge: 09/13/24
Total time spent discharging patient (in min): 40
-
Pending Results: No
Hospital Course
Primary care physician : None Listed
Principal Discharge diagnosis : Sepsis with lactic acidosis due to Escherichia coli urine culture positive, hypernatremia, hypokalemia, acute kidney injury
Chronic Discharge diagnosis : Severe protein calorie malnutrition, mood disorder/psychosis, history of deep venous thrombosis, multiple pressure injuries on legs, feet, right hip, right ischium all present on admission
Hospital Course : Patient was a 69-year-old female who with chronic mood disorder and psychosis, bilateral lower extremity contractures nonverbal at baseline with failure to thrive who presented from local snf for further evaluation.
Patient is nonverbal and history and information were limited. Patient was noted to be contracted and cachectic. She was febrile to 103 �F and was hypotensive and tachycardic. Patient was treated with IV boluses and does make eye contact after
volume resuscitation. She was restless and pulled the monitors and lines. [id number] confirms baseline nonverbal and nonambulatory status and has made the patient DO NOT RESUSCITATE. Patient was found to be profoundly hyponatremic as well.
Patient was admitted.
Problem #1: Sepsis with lactic acidosis due to Escherichia coli urine culture positive. Patient was placed on broad-spectrum antibiotics and admitted to the hospital. Zosyn was renally dosed. Urine culture from September 09, 2024 showed
Escherichia coli. All other cultures including blood cultures were negative. COVID and flu were negative as well. Patient was eventually transitioned to oral cephalexin at the time of discharge to complete her course. White blood cell count was
elevated at the time of admission at 14.8 and has returned to normal at 7.5 on the day of discharge.
Problem #2: Hypernatremia. Patient's sodium on admission was 154 which then peaked at 159. After giving normal saline resuscitative efforts for hypotension, patient was then transitioned to hypotonic IV fluids. Sodium did improve to 142 at the
time of discharge. This was felt to be due to poor oral intake prior to admission as well as infection.
Problem #3: Hypokalemia. This was repleted as needed.
Problem #4: Acute kidney injury. Patient has no history of chronic kidney disease. Creatinine on admission peaked at 1.3 up from 1.0 on the day of admission. Again with IV fluid resuscitation patient's creatinine improved to 0.4 at the time of
discharge.
Problem #5: All other medical issues. These include Severe protein calorie malnutrition, mood disorder/psychosis, history of deep venous thrombosis, multiple pressure injuries on legs, feet, right hip, right ischium all present on admission. These
medical issues were stable during her hospitalization. Medications were continued as able.
Long conversations were had with the patient's sister and [id number] by phone. Explained significant weight loss, failure to thrive and that some patients 'give up' after a while and refuse to eat and drink. She has chronic contractures and
significant wounds which yvonne poorly for wound healing given her limited oral access. Patient was initially made n.p.o. with speech evaluation. Patient did eventually pass and get the pur�ed IDD4 diet. Nevertheless, hospice was recommended.
administrative liaison met with patient's sister and [id number] by phone as mentioned. They are in agreement with hospice and its philosophy. Patient is discharged back to her snf in stable condition to assume hospice with [facility] as
their agency of choice. Patient was discharged with her oral cephalexin to complete her antibiotic course.
Patient is stable for discharge back to the snf at this time. If there are any questions regarding this dictation or her hospital course, please not hesitate to call. Our office number is [phone].
Time for discharge 40 minutes.
Discharge Plan
-
Patient Disposition: Longterm/SNF
Discharge Diagnosis/Procedures: Sepsis with lactic acidosis due to Escherichia coli urinary tract infection, hyponatremia, hypokalemia, acute kidney injury, severe protein calorie malnutrition, mood disorder with psychosis, history of deep venous
thrombosis, multiple pressure injuries on legs/feet/right hip/right ischium all present on admission
Condition: Fair
Diet: Other diet
Additional Diets: IDD4 pureed
Activity: As tolerated
Driving Restrictions: No driving
Bathing Restrictions: None
Other Services: Hospice
Activity Restrictions/Additional Instructions:
Wound Care Instructions
R ischium: Dakin's wtd daily and prn drianage
Bunions on feet: clean with soap and water, adaptic and silicone foams change q 3 days and prn drainage.
Feet/legs and R hip: clean with soap and water, silicone foams change q 3 days.
Air mattress with turning schedule
Padding btw knees
Referrals:
UNKNOWN,NO INTERVIEW [Family Provider] - in less than 1 week
Prescriptions:
New
cephalexin 500 mg Capsule
500 mg PO BID 7 Days Qty: 14 0RF
Dakin's Solution 0.125 % Solution
1 applic topical DAILY Qty: 0 0RF
Continued
acetaminophen 325 mg Tablet
650 mg PO Q4HPRN PRN (Reason: mild pain)
acetaminophen 650 mg Suppository
650 mg LA Q4HPRN PRN (Reason: mild pain)
potassium chloride 20 mEq tablet,ER particles/crystals
20 meq PO DAILY
magnesium hydroxide [Milk of Magnesia] 400 mg/5 mL Suspension
30 ml PO HSPRN PRN (Reason: if no bm in 3 days)
bisacodyl [Dulcolax (bisacodyl)] 10 mg Suppository
10 mg LA DAILYPRN PRN (Reason: if no results for MOM)
mirtazapine 15 mg tablet
15 mg PO HS
Eliquis 5 mg tablet
5 mg PO BID
ergocalciferol (vitamin D2) 1,250 mcg (50,000 unit) Capsule
50,000 unit PO TH 30 Days Qty: 4 0RF
Held
furosemide 20 mg tablet
20 mg PO DAILY
Hold Instructions: eval if needs restart for fluid retention
Discontinued
acetaminophen 325 mg Tablet
650 mg PO HS
acetaminophen 500 mg Tablet
1,000 mg PO Q6HPRN PRN (Reason: mild pain)
Discharge Orders:
Discharge Patient (As Directed); Ordered 09/13/24
Ordered By: Katie Hobbs
Discharge Date and Time
Discharge Date/Time: 09/13/24 15:06
Print Language: STATELESS
== END 2024-09-13 15:06 | DRG 871 ==
LOC: 4 WEST ACU 23:48
PROVIDERS: Clinical Nurse Specialist Family Health; Nurse Practitioner Gerontology; Student in an Organized Health Care Education/Training Program; ADMITTING PHYSICIAN Hospitalist; ATTENDING PHYSICIAN Internal Medicine; EMERGENCY PHYSICIAN Emergency Medicine
DX: A41.51 Sepsis due to Escherichia coli [E. coli] (principal); E43 Unspecified severe protein-calorie malnutrition; L89.214 Pressure ulcer of right hip, stage 4; Z68.1 Body mass index [BMI] 19.9 or less, adult; E87.0 Hyperosmolality and hypernatremia; E87.20 Acidosis, unspecified; N17.9 Acute kidney failure, unspecified; R62.7 Adult failure to thrive; R53.81 Other malaise; Z11.52 Encounter for screening for COVID-19; Z66 Do not resuscitate; E87.6 Hypokalemia; F32.A Depression, unspecified; Z86.718 Personal history of other venous thrombosis and embolism
CPT/HCPCS: 71045; 80048; 80053; 81003; 81015; 82962; 83605; 83735; 84100; 84439; 84443; 85025; 85027; 87040; 87070; 87077; 87086; 87186; 87502; 87811; 92526; 92610; 93005; 96361; 96374; 99285